=== PATIENT | female | born 1940 | race African-American/Black ===

== ENCOUNTER → 2016-07-08 | Outpatient (CLI) | payer MEDICARE, OTHER ==
[2015-12-07 12:50] VITALS: BP 131/49
[~2016-07-08] MED LIST: ASCO-78 PO; ASPI325T4 PO; CHOL20003 PO; DILT360C PO; ESOM40CA PO; IOHEXOL 240 MG/ML 50ML VIAL. PO ONE; IOHEXOL 300 MG/ML 75 ML VIAL IV ONE; METF500T4 PO; PRAV40TA2 PO; TRIA1TAB2 PO
[2016-07-08 10:19] LABS: CREATININE 1.2 mg/dL (0.6-1.0); GFR 52.7
--- NOTE | 2016-07-08 11:31 | RAD ---
Indication epigastric pain for 2 years. Axial images through the abdomen and pelvis were obtained. Both IV and oral contrast were administered. 60 cc of Omnipaque [address] imaging of the abdomen or pelvis is available The lung bases are clear. Coronary artery calcification is noted. Clips are noted in the gallbladder fossa. A focal mass in the liver or spleen is not seen. Slightly prominent common bile duct is likely a function of the postcholecystectomy state. The pancreas appears unremarkable. There is some scarring involving the upper pole of the right kidney. The kidneys are otherwise unremarkable. No adrenal pathology is seen. A focal mass inflammatory process or acute finding in the abdomen is not seen. In the pelvis occasional diverticula are seen associated with the large bowel. Active inflammation is not seen. A mass or acute finding in the pelvis is not apparent IMPRESSION: No acute or significant finding seen in the abdomen or pelvis PQRS Compliance Statement: One or more of the following individualized dose reduction techniques were utilized for this examination: 1. Automated exposure control 2. Adjustment of the mA and/or kV according to patient size 3. Use of iterative reconstruction technique
== END | disposition home or self-care (01) ==
LOC: CT 08:55
PROVIDERS: ATTEND Internal Medicine Gastroenterology
DX: R10.13 Epigastric pain (principal)
CPT/HCPCS: 36415; 74177; 82565; 84520; Q9966; Q9967

== ENCOUNTER → 2016-12-25 | Outpatient (CLI) | payer MEDICARE, OTHER ==
[2015-12-07 12:50] VITALS: BP 131/49
[~2016-12-25] MED LIST changes: -ASPI325T4 PO; +ASPI325T8 PO; -CHOL20003 PO; +CHOL20009 PO; -IOHEXOL 240 MG/ML 50ML VIAL. PO ONE; -IOHEXOL 300 MG/ML 75 ML VIAL IV ONE
--- NOTE | 2016-12-25 12:53 | RAD ---
DATE: 12/25/2016. EXAM: DIGITAL SCREEN BILAT W/CAD. HISTORY: Routine mammographic screening. COMPARISON: 10/25/2015, 09/16/2014, 09/01/2013. This study was interpreted with the benefit of Computerized Aided Detection (CAD). FINDINGS: The breast parenchyma is heterogeneously dense, which could reduce sensitivity of mammography. Breast parenchyma level C.. There are no suspicious masses, microcalcifications or architectural distortion. Vascular calcifications are benign. The parietal pattern is stable. A dense nodular focus in the left axilla is most likely a skin mole and deodorant. BI-RADS CATEGORY: 2 BENIGN FINDING(S). RECOMMENDED FOLLOW-UP: 12M 12 MONTH FOLLOW-UP. Correlate clinically for a prominent skin mole in the left axilla. PQRS compliance statement: Patient information was entered into a reminder system with a target due date 03/06/2018 for the next mammogram. Mammography is a sensitive method for finding small breast cancers, but it does not detect them all and is not a substitute for careful clinical examination. A negative mammogram does not negate a clinically suspicious finding and should not result in delay in biopsying a clinically suspicious abnormality. "Our facility is accredited by the [employer] Mammography Program."
== END | disposition home or self-care (01) ==
LOC: MAMMO 10:58
PROVIDERS: ATTEND Family Medicine
DX: Z12.31 Encounter for screening mammogram for malignant neoplasm of breast (principal)
CPT/HCPCS: G0202; 77067

== ENCOUNTER → 2018-01-08 | Day surgery (SDC) | payer MEDICARE, OTHER ==
[~2018-01-08] MED LIST changes: +IV RINGERS,LACTATED 1000ML 1,000 ML IV SCH; +LIDOCAINE 1% PF 2 ML VIAL. ID PRN; +METF500T16 PO; -METF500T4 PO; +MIDAZOLAM HCL/PF 2 MG/2 ML VIAL. IV PRN; +PROPOFOL 20 ML IV ONE; +fentaNYL PF VIAL 100 MCG/2 ML VIAL IV PRN
[2018-01-08 13:45] VITALS: BP 181/78
--- NOTE | 2018-01-09 17:10 | PATHOLOGY ---
[facility] Accession Number: [id number] . 01 Material submitted: . RANDOM COLON BIOPSY . 01 Clinical history: . Diarrhea . 02 Diagnosis: Colon, random biopsies: - Multiple fragments of colonic mucosa with no significant histopathologic diagnosis. . (SKM:vjm;01/09/2018) AGA/01/09/2018 . 02 Electronically signed: . Dez Esquivel MD, Pathologist NPI- [id number] . 01 Gross description: . Received in formalin labeled "Katy Mcclain, random colon BX, rule out collagenous colitis," are multiple segments of blanco soft tissue measuring 2.0 x 0.9 x 0.2 cm in aggregate dimensions. The specimen is filtered and entirely submitted in cassette A1. (TSD; 01/08/2018) TOB/TOB . 02 Pathologist provided ICD-10: R19.7 . 02 CPT . 371887 Specimen Comment: A courtesy copy of this report has been sent to Specimen Comment: [phone], . Specimen Comment: Report sent to / DR REZA Specimen Comment: A duplicate report has been generated due to demographic updates. Performed at: 01 [facility] [address], [place] [id number] MD Khris Nguyen MD Phone: [phone] Performed at: 02 [facility] [address] [place], [place] [id number] MD Alcon Ndiaye MD Phone: [phone]
== END | disposition home or self-care (01) ==
LOC: ENDOS 12:10
PROVIDERS: ATTEND Internal Medicine Gastroenterology
DX: K57.30 Diverticulosis of large intestine without perforation or abscess without bleeding (principal); K63.89 Other specified diseases of intestine; K52.9 Noninfective gastroenteritis and colitis, unspecified; K64.0 First degree hemorrhoids; E11.9 Type 2 diabetes mellitus without complications; E78.00 Pure hypercholesterolemia, unspecified; I10 Essential (primary) hypertension; R10.13 Epigastric pain; Z87.891 Personal history of nicotine dependence; Z79.899 Other long term (current) drug therapy; Z79.84 Long term (current) use of oral hypoglycemic drugs; Z90.49 Acquired absence of other specified parts of digestive tract; Z90.710 Acquired absence of both cervix and uterus; Z95.1 Presence of aortocoronary bypass graft; Z98.890 Other specified postprocedural states
CPT/HCPCS: 45380; 88305; J2704

== ENCOUNTER → 2018-02-10 | Outpatient (CLI) | payer MEDICARE, OTHER ==
[2018-01-08 13:45] VITALS: BP 181/78
[~2018-02-10] MED LIST changes: -IV RINGERS,LACTATED 1000ML 1,000 ML IV SCH; -LIDOCAINE 1% PF 2 ML VIAL. ID PRN; -MIDAZOLAM HCL/PF 2 MG/2 ML VIAL. IV PRN; -PROPOFOL 20 ML IV ONE; -fentaNYL PF VIAL 100 MCG/2 ML VIAL IV PRN
--- NOTE | 2018-02-10 16:59 | RAD ---
Radionuclide gastric emptying study, 02/10/2018: HISTORY: Bloating, abdominal pain This study was performed utilizing a solid test meal radiolabeled with 2.0 mCi of technetium 99m sulfur colloid. The following gastric retention values were obtained: 1 hour-47 percent 2 hours-34 percent 3 hours-0 percent 4 hours-0 percent These values are in the normal range. IMPRESSION: Normal radionuclide gastric emptying study. Electronically signed by: Del Vital MD (02/10/2018 4:55 PM) [facility]
== END | disposition home or self-care (01) ==
LOC: NM 08:43
PROVIDERS: ATTEND Internal Medicine Gastroenterology
DX: R10.84 Generalized abdominal pain (principal); R14.0 Abdominal distension (gaseous)
CPT/HCPCS: 78264; A9541

== ENCOUNTER → 2018-03-19 | Outpatient (CLI) | payer MEDICARE, OTHER ==
[2018-01-08 13:45] VITALS: BP 181/78
[~2018-03-19] MED LIST changes: +BARIUM SULFATE 60% 355 ML SUSP PO ONE
--- NOTE | 2018-03-19 14:18 | RAD ---
Small bowel series, 03/19/2018: History: Left lower quadrant pain The preliminary abdominal image demonstrates a moderate amount stool scattered throughout the colon. The abdominal gas pattern is otherwise unremarkable. There are moderate scattered vascular calcifications. Surgical clips are present in the right upper quadrant. Mild scattered degenerative changes are present in the spine. Serial digital images were obtained following oral ingestion of liquid barium. 3 fluoroscopic spot images were also recorded. 0.3 minutes of fluoroscopy time is utilized. The small bowel loops are of normal caliber with no evidence of thickening of their folds. There is normal transit of the barium through the small bowel into the colon. The terminal ileum is unremarkable. On one image there is a suggestion of a small hiatal hernia. IMPRESSION: No significant small bowel abnormality is detected.
== END | disposition home or self-care (01) ==
LOC: RAD 08:25
PROVIDERS: ATTEND Internal Medicine Gastroenterology
DX: R10.32 Left lower quadrant pain (principal)
CPT/HCPCS: 74250

== ENCOUNTER 2018-10-22 13:42 | Emergency (ER) | payer MEDICARE, OTHER ==
[~2018-10-22] VITALS: Ht 154.9 cm; Wt 72.6 kg
[~2018-10-22 13:42] MED LIST changes: -BARIUM SULFATE 60% 355 ML SUSP PO ONE
[2018-10-22 14:01] VITALS: BP 146/65
--- NOTE | 2018-10-22 14:49 | PHYS DOC ---
Past Medical History Past Medical History: Diabetes-Type II, GERD, High Cholesterol, Hypertension Past Surgical History: Other Additional Past Surgical Histo: BILATERAL CAROTID Alcohol Use: None Drug Use: None Adult General Chief Complaint Chief Complaint: SUTURE/STAPLE REMOVAL [facility] HPI Patient is a 78 year old female presents for suture removal. The patient Morris before last hit her head against a wall while she was and down off had tal put in. States that the wound is been healing with no issues. Denies any pain. Review of Systems Review of Systems Constitutional: Denies fever or chills [] Eyes: Denies change in visual acuity, redness, or eye pain [] HENT: Denies nasal congestion or sore throat [] Respiratory: Denies cough or shortness of breath [] Cardiovascular: No additional information not addressed in HPI [] GI: Denies abdominal pain, nausea, vomiting, bloody stools or diarrhea [] : Denies dysuria or hematuria [] Musculoskeletal: Denies back pain or joint pain [] Integument: Has 4 staple in the head. Neurologic: Denies headache, focal weakness or sensory changes [] Endocrine: Denies polyuria or polydipsia [] Complete systems were reviewed and found to be within normal limits, except as documented in this note. Allergies Allergies Allergies Coded Allergies Type Severity Reaction Last Updated Verified No Known Drug Allergies 01/08/18 No Physical Exam Physical Exam Constitutional: Well developed, well nourished, no acute distress, non-toxic appearance. [] HENT: Normocephalic, atraumatic, bilateral external ears normal, oropharynx moist, no oral exudates, nose normal. [] Eyes: PERRLA, EOMI, conjunctiva normal, no discharge. [] Neck: Normal range of motion, no tenderness, supple, no stridor. [] Cardiovascular:Heart rate regular rhythm, no murmur [] Lungs & Thorax: Bilateral breath sounds clear to auscultation [] Abdomen: Bowel sounds normal, soft, no tenderness, no masses, no pulsatile masses. [] Skin: 4 tal in head, wound is healing appropriately, no erythema, or exudate. Back: No tenderness, no CVA tenderness. [] Extremities: No tenderness, no cyanosis, no clubbing, ROM intact, no edema. [] Neurologic: Alert and oriented X 3, normal motor function, normal sensory function, no focal deficits noted. [] Psychologic: Affect normal, judgement normal, mood normal. [] Current Patient Data Vital Signs Vital Signs Date Time Temp Pulse Resp B/P (MAP) Pulse Ox O2 Delivery O2 Flow Rate FiO2 10/22/18 14:01 97.7 102 16 146/65 (92) 97 Room Air 97.7 EKG EKG [] Radiology/Procedures Radiology/Procedures [] Course & Med Decision Making Course & Med Decision Making Pertinent Labs and Imaging studies reviewed. (See chart for details) Removed 4 tal from patient's head. Dragon Disclaimer Dragon Disclaimer This electronic medical record was generated, in whole or in part, using a voice recognition dictation system. Departure Departure Impression: Primary Impression: Encounter for staple removal Disposition: HOME, SELF-CARE Condition: STABLE Referrals: ELBERT REZA MD (PCP) SAY PONCE MD Patient Instructions: Staple Removal, Care After Additional Instructions: Thank you for visiting [facility]. We appreciate you trusting us with your care. If any additional problems come up don't hesitate to return to visit us. Please follow up with your primary care provider so they can plan additional care if needed and know about the problem that you had. If symptoms worsen come back to the Emergency Department. Any concerning symptoms that start such as chest pain, shortness of air, weakness or numbness on one side of the body, running high fevers or any other concerning symptoms return to the ER. SUHAIL PATTON APRN Oct 22, 2018 14:49
== END 2018-10-22 14:56 | disposition home or self-care (01) ==
LOC: ER 13:42
DX: S01.81XD Laceration without foreign body of other part of head, subsequent encounter (principal); E11.9 Type 2 diabetes mellitus without complications; K21.9 Gastro-esophageal reflux disease without esophagitis; E78.00 Pure hypercholesterolemia, unspecified; I10 Essential (primary) hypertension; W22.01XD Walked into wall, subsequent encounter
CPT/HCPCS: 99281

== ENCOUNTER → 2018-11-11 | Outpatient (CLI) | payer MEDICARE, OTHER ==
[2018-10-22 14:01] VITALS: BP 146/65
--- NOTE | 2018-11-11 16:55 | RAD ---
CT study cervical spine without contrast Clinical indications: Closed fracture of the transverse process of the cervical spine. COMPARISON: None available. At technique: Noncontrast helical CT scanning of the cervical spine was performed. Multiplanar 2-D reconstructions were generated. PQRS compliance Statement One or more of the following individualized dose reduction techniques were utilized for this study: 1. Automated exposure control 2. Adjustment of the mA and/or kV according to patient size 3. Use of iterative reconstruction technique FINDINGS: No fracture line is evident. No discitis or lytic process is evident. No perching of facet joints is evident. Degenerative facet arthropathy is seen throughout the cervical spine. There is degenerative disc space narrowing and endplate spurring throughout the cervical spine from C2-3 down through C7-T1 including the upper thoracic spine. This results in multilevel spinal canal stenosis. This is most prominent at C3-4 and C4-5 which measures 8 mm in the AP midline. Multilevel neural foraminal narrowing is seen bilaterally throughout the cervical spine most prominent at C3-4 and C4-5. No prominent focal disc protrusion is seen otherwise. IMPRESSION: Diffuse degenerative cervical spondylosis resulting in multilevel neural foraminal narrowing and spinal canal stenosis most prominent at C3-4 and C4-5. No fracture line is evident. Electronically signed by: Cornel Devine MD (11/11/2018 4:53 PM) [place] [id number]
== END | disposition home or self-care (01) ==
LOC: CT 10:16
PROVIDERS: ATTEND Family Medicine
DX: S12.9XXD Fracture of neck, unspecified, subsequent encounter (principal); M47.892 Other spondylosis, cervical region; M48.02 Spinal stenosis, cervical region; X58.XXXD Exposure to other specified factors, subsequent encounter
CPT/HCPCS: 72125

== ENCOUNTER → 2018-12-29 | Outpatient (CLI) | payer MEDICARE, OTHER ==
[~2018-12-29] MED LIST changes: +IOHEXOL 240 MG/ML 50ML VIAL. PO ONE; +IOHEXOL 300 MG/ML 100ML VIAL. IV ONE
--- NOTE | 2018-12-29 16:57 | RAD ---
Examination: CT ABD PELV W/ORAL IV CONTRAST History: Right upper quadrant abdominal pain Comparison/Correlation: 07/08/2016 CT abdomen and pelvis with contrast Findings: Axial images of the abdomen and pelvis were obtained following IV and oral contrast. Sagittal and coronal reformatted images were provided. Mild centrilobular emphysematous involvement of lung espinosa noted. Small hiatal hernia is present. Cholecystectomy noted. Minimal centrilobular prominence is present. Pancreas is normal. Spleen is unremarkable. Right renal atrophy is evident at the superior pole. Left kidney is unremarkable. Appendix is normal. No ascites or pelvic free fluid. No enlarged abdominal or pelvic lymph nodes. No bowel obstruction or extraluminal gas. Diverticulosis is mild. A fat density mass is present involving the proximal transverse colon measuring 3.3 cm transverse by 2.7 cm longitudinal by 3.2 cm anteroposterior. There is a thin septation within this fat density mass. This appears to be subserosal in location. Significant luminal narrowing at this site is present. There is moderate to large quantity of stool however present within the colon proximal to this and distal to it. No obstruction at the site. Urinary bladder is unremarkable. Significant degenerative disc space narrowing is present from L3 to S1. Marked calcification involvement of the abdominal aorta and iliac arteries is noted. Healing calcification involving of the cystic artery origin. Marked calcific involvement of the superior mesenteric artery proximally is evident. Right main renal fascial stent is present. Calcification along the left main artery also is evident. Uterus is atrophic or absent. 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 Luminal narrowing is present at this site but no obstruction. Cholecystectomy. Slight biliary prominence likely representing reservoir effect. Correlate with liver function enzymes in determining further assessment. Hiatal hernia. Mild diverticulosis. PQRS Compliance Statement: One or more of the following individualized dose reduction techniques were utilized for this examination: 1. Automated exposure control 2. Adjustment of the mA and/or kV according to patient size 3. Use of iterative reconstruction technique Electronically signed by: Reggie Membreno MD (12/29/2018 4:54 PM) [facility]
--- NOTE | 2018-12-29 19:41 | RAD ---
DATE: 12/29/2018 EXAM: MAMMO CED SCREENING BILATERAL HISTORY: Routine screening COMPARISON: 12/25/2016 This study was interpreted with the benefit of Computerized Aided Detection (CAD). Breast Density: SCATTERED The breast parenchyma shows scattered fibroglandular densities. Breast parenchyma level B. FINDINGS: No suspicious calcification, mass, or distortion. IMPRESSION: Stable BI-RADS CATEGORY: 2 BENIGN FINDING(S) RECOMMENDED FOLLOW-UP: 12M 12 MONTH FOLLOW-UP PQRS compliance statement: Patient information was entered into a reminder system with a target due date for the next mammogram. Mammography is a sensitive method for finding small breast cancers, but it does not detect them all and is not a substitute for careful clinical examination. A negative mammogram does not negate a clinically suspicious finding and should not result in delay in biopsying a clinically suspicious abnormality. "Our facility is accredited by the [employer] Mammography Program."
== END | disposition home or self-care (01) ==
LOC: CT 14:24
PROVIDERS: ATTEND Family Medicine
DX: Z12.31 Encounter for screening mammogram for malignant neoplasm of breast (principal); K44.9 Diaphragmatic hernia without obstruction or gangrene; K57.90 Diverticulosis of intestine, part unspecified, without perforation or abscess without bleeding; N26.1 Atrophy of kidney (terminal); M48.07 Spinal stenosis, lumbosacral region; J43.2 Centrilobular emphysema; I70.0 Atherosclerosis of aorta; I70.8 Atherosclerosis of other arteries; Z90.49 Acquired absence of other specified parts of digestive tract
CPT/HCPCS: 74177; 77063; 77067; Q9966; Q9967

== ENCOUNTER → 2019-07-14 | Day surgery (SDC) | payer MEDICARE, OTHER ==
[~2019-07-14] MED LIST changes: +HYDROmorphone 2 MG/ML VIAL IV PRN; -IOHEXOL 240 MG/ML 50ML VIAL. PO ONE; -IOHEXOL 300 MG/ML 100ML VIAL. IV ONE; +IV RINGERS,LACTATED 1000ML 1,000 ML IV SCH; +LIDOCAINE 1% PF 2 ML VIAL. ID PRN; +MORPHINE SULFATE 2 MG/ML VIAL. IV PRN; +ONDANSETRON PF 4 MG/2 ML VIAL. IV PRN; +PROCHLORPERAZINE 10 MG/2 ML VIAL. IV PRN; +PROPOFOL 10 MG/ML (20ML) VIAL. IV ONE; +fentaNYL PF VIAL 100 MCG/2 ML VIAL IV PRN
[2019-07-14 09:27] VITALS: BP 145/65
--- NOTE | 2019-07-15 18:06 | PATHOLOGY ---
[facility] Accession Number: [id number] . 01 Material submitted: . esophagus - GE JUNCTION BX . 01 Clinical history: . N/V . 02 Diagnosis: Gastroesophageal junction biopsies: - Segments of hyperplastic squamous esophageal mucosa and gastric mucosa showing moderate chronic and acute inflammation. (JPM:rashaun; 07/15/2019) [facility] 07/15/2019 0946 Local . 02 Comment: Sections of the gastroesophageal junction biopsy reveal segments of tangentially oriented hyperplastic squamous esophageal mucosa, and two segments of gastric mucosa showing moderate chronic and acute inflammation. The findings are consistent with reflux esophagitis with ulceration. There is no evidence of Hernandez's change, dysplasia, or malignancy. (JPM:rashaun 07/15/2019) . 02 Electronically signed: . Alcon Ndiaye MD, Pathologist NPI- [id number] . 01 Gross description: . The specimen is received in formalin, labeled "Katy Mcclain, GE junction biopsy". Received are five segments of pale blanco soft tissue ranging in size from 0.2 to 0.4 cm in maximum dimensions. The specimen is submitted entirely in cassette A1. (CAA; 07/14/2019) QA/QA 07/14/2019 1508 Local . 02 Pathologist provided ICD-10: K20.8 . 02 CPT . 978762 Specimen Comment: A courtesy copy of this report has been sent to [phone] Specimen Comment: [phone] Specimen Comment: Report sent to / DR REZA Performed at: 01 [facility] [address], [place], [place] [id number] MD Khris Nguyen MD Phone: [phone] Performed at: 02 [facility] [address] [place], [place] [id number] MD Alcon Ndiaye MD Phone: [phone]
== END | disposition home or self-care (01) ==
LOC: SURG 07-12 12:27
PROVIDERS: ATTEND Internal Medicine Gastroenterology
DX: R63.4 Abnormal weight loss (principal); Z11.59 Encounter for screening for other viral diseases; K20.9 Esophagitis, unspecified; Q39.6 Congenital diverticulum of esophagus; E11.9 Type 2 diabetes mellitus without complications; I10 Essential (primary) hypertension; E78.00 Pure hypercholesterolemia, unspecified; Z87.891 Personal history of nicotine dependence; Z79.84 Long term (current) use of oral hypoglycemic drugs; Z79.82 Long term (current) use of aspirin; Z79.899 Other long term (current) drug therapy; Z90.49 Acquired absence of other specified parts of digestive tract; Z90.710 Acquired absence of both cervix and uterus; Z95.1 Presence of aortocoronary bypass graft
CPT/HCPCS: 36415; 43239; 87635; 88305; J2704

== ENCOUNTER → 2020-07-26 | Outpatient (CLI) | payer MEDICARE, OTHER ==
[2019-07-14 09:27] VITALS: BP 145/65
[~2020-07-26] MED LIST changes: -HYDROmorphone 2 MG/ML VIAL IV PRN; -IV RINGERS,LACTATED 1000ML 1,000 ML IV SCH; -LIDOCAINE 1% PF 2 ML VIAL. ID PRN; -MORPHINE SULFATE 2 MG/ML VIAL. IV PRN; -ONDANSETRON PF 4 MG/2 ML VIAL. IV PRN; -PROCHLORPERAZINE 10 MG/2 ML VIAL. IV PRN; -PROPOFOL 10 MG/ML (20ML) VIAL. IV ONE; -fentaNYL PF VIAL 100 MCG/2 ML VIAL IV PRN
--- NOTE | 2020-07-26 15:44 | RAD ---
EXAM: Bilateral digital screening mammogram with tomosynthesis. HISTORY: 79-year-old female presents for screening mammography. TECHNIQUE: Full-field digital craniocaudal and mediolateral oblique 2D and 3D tomosynthesis images of both breasts are obtained for evaluation. Computer aided detection was applied. COMPARISON: 12/27/2018 BREAST PARENCHYMAL DENSITY: Level C - Heterogeneously dense. FINDINGS: There is no new suspicious mass, microcalcification or region of architectural distortion. IMPRESSION: BI-RADS Category 2: Benign finding(s). RECOMMENDATION: Annual mammography is recommended. If your mammogram demonstrates that you have dense breast tissue, which could hide abnormalities, and if you have other risk factors for breast cancer that have been identified, you might benefit from s upplemental screening tests that may be suggested by your ordering physician. Dense breast tissue, i n and of itself, is a relatively common condition. This information is not provided to cause undue c oncern, but rather to raise your awareness and to promote discussion with your physician regarding th e presence of other risk factors, in addition to dense breast tissue. A report of your mammography re sults will be sent to you and your physician. You should contact your physician if you have any ques tions or concerns regarding this report. Mammography is a sensitive method for finding small breast cancers, but it does not detect them all a nd is not a substitute for careful clinical examination. A negative mammogram does not negate a clin ically suspicious finding and should not result in delay in biopsying a clinically suspicious abnorma lity. PQRS compliance statement - Patient information was entered into a reminder system with a target due date for the next mammogram. "Our facility is accredited by the [employer] Mammography Program." Electronically signed by: Oralia Hernandez MD (07/26/2020 3:42 PM) [id number]
== END ==
LOC: MAMMO 15:20
PROVIDERS: ATTEND Family Medicine
DX: Z12.31 Encounter for screening mammogram for malignant neoplasm of breast (principal)
CPT/HCPCS: 77063; 77067

== ENCOUNTER → 2020-10-31 | Outpatient (CLI) | payer MEDICARE, OTHER ==
[2019-07-14 09:27] VITALS: BP 145/65
[~2020-10-31] MED LIST changes: +ALEN35TA47 PO; +CALC500T30 PO; +CRESTOR5 MG PO; +POTA10TA12 PO; +VALS160T3 PO; +ZINC50TA39 PO
--- NOTE | 2020-10-31 15:50 | EKG ---
[facility] [address] [place] [address] Test Date: 2020-10-31 Test Time: 15:46:34 Pat Name: LORY FLYNN Department: Room: Gender: F Clerk Stenographer: SOCRATES : 1940 Requested By: SAY PONCE Order Number: [id number] Reading MD: Measurements Intervals Windfall Rate: 78 P: 54 MA: 134 QRS: -6 QRSD: 86 T: 82 QT: 384 QTc: 441 Interpretive Statements SINUS RHYTHM LEFT ATRIAL ABNORMALITY LEFTWARD AXIS T ABNORMALITY IN HIGH LATERAL LEADS INFERIOR LEADS ABNORMAL ECG RI6.02 No previous ECG available for comparison
[2020-10-31 16:04] LABS: BASO # 0.1 x10^3/uL (0.0-0.2); BASO % 1 % (0-3); EOS # 0.1 x10^3/uL (0.0-0.7); EOS % 2 % (0-3); HEMATOCRIT 38.3 % (36.0-47.0); HEMOGLOBIN 12.5 g/dL (12.0-15.5); LYMPH # 1.5 x10^3/uL (1.0-4.8); LYMPH % 22 % (24-48); MEAN CORPUSCULAR HEMOGLOBIN 27 pg (25-35); MEAN CORPUSCULAR HGB CONC 33 g/dL (31-37); MEAN CORPUSCULAR VOLUME 83 fL (79-100); MONO # 0.5 x10^3/uL (0.0-1.1); MONO % 8 % (0-9); NEUT # 4.4 x10^3/uL (1.8-7.7); NEUT % 67 % (31-73); PLATELET COUNT 275 x10^3/uL (140-400); RED BLOOD COUNT 4.62 x10^6/uL (3.50-5.40); RED CELL DISTRIBUTION WIDTH 14.6 % (11.5-14.5); WHITE BLOOD COUNT 6.6 x10^3/uL (4.0-11.0)
--- NOTE | 2020-10-31 16:13 | RAD ---
AP and Lateral Views of the Chest 10/31/2020 3:50 PM Indication: Preoperative, right shoulder surgery Comparison: None available Findings: Heart size is normal. No pneumothorax or pleural effusion is seen. There is diffuse interst itial coarsening possibly representing a component of chronic lung disease. Left shoulder arthroplast y noted. Degenerative changes of the right shoulder noted. An acute osseous abnormality is not identi fied. IMPRESSION: Diffuse interstitial coarsening, likely reflecting chronic change. No evidence of acute c ardiopulmonary process is identified Electronically signed by: Jean Marie Perla MD (10/31/2020 4:11 PM) [id number]
[2020-10-31 16:16] LABS: ALBUMIN 3.1 g/dL (3.4-5.0); CALCIUM 8.8 mg/dL (8.5-10.1); CREATININE 0.9 mg/dL (0.6-1.0); GFR 72.5; POTASSIUM 3.8 mmol/L (3.5-5.1)
[2020-10-31 16:18] LABS: PROTHROMBIN TIME PATIENT 12.4 SEC (11.7-14.0)
[2020-11-01 01:11] LABS: HEMOGLOBIN A1C 5.7 % (4.8-5.6)
== END ==
LOC: SURGPAT 14:23
PROVIDERS: ATTEND Orthopaedic Surgery
DX: Z01.818 Encounter for other preprocedural examination (principal); R94.31 Abnormal electrocardiogram [ECG] [EKG]; M19.012 Primary osteoarthritis, left shoulder
CPT/HCPCS: 36415; 71046; 80048; 82040; 82306; 83036; 85025; 85610; 85651; 85730; 87641; 93005

== ENCOUNTER → 2020-11-30 | Outpatient (CLI) | payer MEDICARE, OTHER ==
[2019-07-14 09:27] VITALS: BP 145/65
--- NOTE | 2020-11-30 17:02 | CARD ---
MR#: [id number] Date of Study: 11/30/2020 Ordering Physician: MARTÍN ASHFORD, Referring Physician: MARTÍN ASHFORD, Tech: Chuy Connelly [facility] APPROVED REPORT EXAM: Two-dimensional and M-mode echocardiogram with Doppler and color Doppler. Other Information Quality : AverageHR: 67bpm Rhythm : NSR INDICATION Pre-Op 2D DIMENSIONS Left Atrium(2D)3.6 (1.6-4.0cm)IVSd0.9 (0.7-1.1cm) Aortic Root(2D)2.5 (2.0-3.7cm)LVDd3.6 (3.9-5.9cm) LVOT Diameter1.7 (1.8-2.4cm)PWd0.9 (0.7-1.1cm) LVDs2.1 (2.5-4.0cm)FS (%) 39.9 % SV38.0 mlLVEF(%)71.5 (>50%) Aortic Valve AoV Peak Anatoly.143.6cm/sAoV VTI31.8cm AO Peak GR.8.2mmHgLVOT Peak Anatoly.102.2cm/s LVOT VTI 22.35cmAO Mean GR.5mmHg SKYE (VMAX)1.47ev9KAC (VTI)1.66cm2 Mitral Valve MV E Rmxxtvkc53.4cm/sMV DECEL DYCN692ki MV A Ghmkclgt886.6cm/sMV QQN95gu E/A Ratio0.8MVA (PHT)2.62cm2 TDI E/Lateral E'11.2E/Medial E'20.0 Pulmonary Valve PV Peak Dubcvttl63.0cm/sPV Peak Grad.2mmHg Tricuspid Valve TR P. Splhanqo612km/sTR Peak Gr.31mmHg Pulmonary Vein S1 Ppzgkunz32.6cm/sD2 Kkjyjqfz99.8cm/s LEFT VENTRICLE The left ventricle is normal size. There is normal left ventricular wall thickness. The left ventricu lar systolic function is normal. The ejection fraction is estimated at 65%. There is normal LV segmen zahra wall motion. Transmitral Doppler flow pattern is Grade I-abnormal relaxation pattern. No left eric tricle thrombus noted on this study. There is no ventricular septal defect visualized. There is no le ft ventricular aneurysm. There is no mass noted in the left ventricle. RIGHT VENTRICLE The right ventricle is normal size. There is normal right ventricular wall thickness. The right ventr icular systolic function is normal. ATRIA The left atrium size is normal. The right atrium size is normal. The interatrial septum is intact wit h no evidence for an atrial septal defect or patent foramen ovale as noted on 2-D or Doppler imaging. AORTIC VALVE The aortic valve is normal in structure and function. Doppler and Color Flow revealed no significant aortic regurgitation. There is no significant aortic valvular stenosis. There is no aortic valvular v egetation. MITRAL VALVE Mitral annular calcification is mild to moderate. There is no evidence of mitral valve prolapse. Ther e is no mitral valve stenosis. Doppler and Color-flow revealed trace to mild mitral regurgitation. TRICUSPID VALVE The tricuspid valve is normal in structure and function. Mild tricuspid regurgitation. The PA pressur e was estimated at 39 mmHg. There is no tricuspid valve prolapse or vegetation. There is no tricuspid valve stenosis. PULMONIC VALVE The pulmonary valve is normal in structure and function. Doppler and Color Flow revealed no pulmonic valvular regurgitation. There is no pulmonic valvular stenosis. GREAT VESSELS The aortic root is normal in size. The ascending aorta is normal in size. The pulmonary artery is nor mal. The IVC is normal in size and collapses >50% with inspiration. PERICARDIAL EFFUSION There is no pleural effusion. There is no evidence of significant pericardial effusion. Critical Notification Critical Value: No <Conclusion> The left ventricular systolic function is normal. The ejection fraction is estimated at 65%. There is normal LV segmental wall motion. Transmitral Doppler flow pattern is Grade I-abnormal relaxation pattern. Trace to mild mitral regurgitation. Mild tricuspid regurgitation. The PA pressure was estimated at 39 mmHg. There is no evidence of significant pericardial effusion. Signed by : Imer Dubois, Electronically Approved : 11/30/2020 17:01:38
--- NOTE | 2020-12-01 09:17 | RAD ---
MR#: [id number] Date of Study: 11/30/2020 Ordering Physician: MARTÍN ASHFORD, Referring Physician: MARTÍN ASHFORD, Tech: Marco Bucio MBA, RDMS, RVT, RDCS, RTR APPROVED REPORT Patient Location: OUT-PATIENT Laterality:Bilateral Indications CAROTID ARTERY DISEASE Doppler Spectral Velocity Analysis Right Left pCCA 53/7 cm/spCCA 140/16 cm/s mCCA 58/12 cm/smCCA 70/13 cm/s dCCA 78/14 cm/sdCCA 73/14 cm/s Bulb 65/9 cm/sBulb 108/15 cm/s ECA 93/ cm/sECA 112/ cm/s pICA 109/25 cm/spICA 143/25 cm/s Chantelle 110/22 cm/smICA 109/24 cm/s dICA 91/17 cm/sdICA 112/24 cm/s Vert. 91/ cm/sVert. 40/ cm/s Subcl. 115/ cm/sSubcl. 146/ cm/s ICA/CCA 1.41ICA/CCA 1.02 Findings Grayscale images demonstrate moderate diffuse atherosclerotic plaque in the bilateral carotid vessels . On the right side there is overall 0 to less than 50% stenosis with normal ICA to CCA ratios and ante grade vertebral velocities and normal subclavian velocities. On the left side there is likely a moderate 50 to 69% stenosis based on velocity criteria involving t he proximal internal carotid artery with mildly elevated ICA to CCA ratio of 2.0. Otherwise normal a ntegrade vertebral velocities are noted in the left side. Normal subclavian velocities Critical Notification Critical Value: No <Conclusion> 1. Moderate left proximal internal carotid arterial disease. Signed by : Kranthi Abdul, Electronically Approved : 12/01/2020 09:15:53
== END ==
LOC: ECHO 10:52
PROVIDERS: ATTEND Internal Medicine Cardiovascular Disease
DX: I08.1 Rheumatic disorders of both mitral and tricuspid valves (principal); I63.232 Cerebral infarction due to unspecified occlusion or stenosis of left carotid arteries; R01.1 Cardiac murmur, unspecified
CPT/HCPCS: 93306; 93880

== ENCOUNTER → 2021-06-15 | Outpatient (CLI) | payer MEDICARE, OTHER ==
[2019-07-14 09:27] VITALS: BP 145/65
--- NOTE | 2021-06-15 16:06 | RAD ---
EXAMINATION: XR CHEST 2V CLINICAL HISTORY: Chronic weight loss. EXAM DATE/TIME: 06/15/2021 3:21 PM COMPARISON: 10/31/2020 FINDINGS: Lines, Tubes, and Devices: None. Cardiomediastinal Silhouette: Normal heart size. Aortic atherosclerotic calcification. Lungs and Pleura: No evidence of focal airspace consolidation or pleural effusion. Mild bibasilar sub segmental atelectasis and/or scarring. Nonspecific interstitial prominence, similar to prior study an d likely chronic. Bones and Soft Tissues: Degenerative changes in the thoracic spine. Partially visualized left shoulde r arthroplasty, incompletely evaluated. Cholecystectomy clips. IMPRESSION: No evidence of acute cardiopulmonary abnormality or significant interval change. Electronically signed by: Romain Bob DO (06/15/2021 4:03 PM) [id number]
== END ==
LOC: RAD 14:58
PROVIDERS: ATTEND Family Medicine
DX: I70.0 Atherosclerosis of aorta (principal); M47.814 Spondylosis without myelopathy or radiculopathy, thoracic region; R63.4 Abnormal weight loss; Z90.49 Acquired absence of other specified parts of digestive tract
CPT/HCPCS: 71046